=== PATIENT | female | born 1990 | race Caucasian/White ===

== ENCOUNTER → 2017-05-31 14:22 | Outpatient (CLI) | payer OTHER, SELFPAY ==
[2017-05-31 16:04] LABS: Basophils # 0.1 K/mm3 (0-0.2); Eosinophils # 0.1 K/mm3 (0.0-0.4); Eosinophils % 1.7 % (0.1-12.0); Hematocrit 41.5 % (37.0-47.0); Hemoglobin 13.4 g/dL (12.2-16.2); Lymphocytes # 2.4 K/mm3 (0.7-4.5); Lymphocytes % 36.9 K/mm3 (10-50); Mean Corpuscular HGB Conc 32.4 g/dL (31.8-35.4); Mean Corpuscular Hemoglobin 30.9 pg (27.0-31.2); Mean Corpuscular Volume 95.4 fl (81-99); Mean Platelet Volume 7.5 fl (7.4-10.4); Monocytes # 0.4 K/mm3 (0.1-1.0); Monocytes % 5.7 % (1.7-9.3); Neutrophils # 3.6 K/mm3 (1.8-7.8); Neutrophils % 54.8 % (37.0-80.0); Platelet Count 272 K/mm3 (142-424); Red Blood Count 4.35 M/mm3 (4.20-5.40); Red Cell Distribution Width 12.8 % (11.5-17.5); White Blood Count 6.6 K/mm3 (4.8-10.8)
[2017-05-31 17:08] LABS: HCG Qualitative, Serum Negative (Negative)
[2017-05-31 17:45] LABS: Alanine Aminotransferase 23 U/L (12-78); Albumin Level 3.6 gm/dL (3.4-5.0); Albumin/Globulin Ratio 1.1 (1.1-1.8); Alkaline Phosphatase 67 U/L (46-116); Anion Gap 11.8 mEq/L (5-15); Aspartate Amino Transferase 14 U/L (15-37); Bilirubin,Total 0.5 mg/dL (0.2-1.0); Blood Urea Nitrogen 13 mg/dL (7-18); Calcium 8.5 mg/dL (8.5-10.1); Carbon Dioxide 28 mmol/L (21.0-32.0); Chloride 101 mmol/L (98-107); Creatinine,Serum 0.69 mg/dL (0.55-1.02); Estimated Glomerular Filt Rate 101 ml/min (>60); GFR (African American) 123 ML/MIN (>60); Globulin 3.3 gm/dl (1.3-3.2); Glucose 62 mg/dL (74-106); Potassium 3.8 mmoL/L (3.5-5.1); Sodium 137 mmol/L (136-145); Total Protein,Serum 6.9 gm/dL (6.4-8.2)
== END ==
PROVIDERS: PCP Internal Medicine Adolescent Medicine; Visit Provider Surgery
DX: K80.10 Calculus of gallbladder with chronic cholecystitis without obstruction
CPT/HCPCS: 80053; 84703; 85025

== ENCOUNTER 2017-06-03 08:46 | Day surgery (SDC) | payer OTHER, SELFPAY ==
[2017-06-02 13:22] VITALS: BMI 29.2
[2017-06-03] VITALS (13 sets, daily range): BP systolic 121–146; BP diastolic 79–95; PULSE 71–100; RESP 16–20; TEMP 36.2–43; O2SAT 94–100
--- NOTE | 2017-06-03 10:11 | P.PN_ITS ---
[facility] Anesthesia Checklist - Patient Identification Patient Identification: Arm Band - Structural Data Admitted From: Home Planned Operative Procedure/s: Lap frances Consent for Planned Operative Procedure(s) Verified: Yes Verified Documents: Surgical Consent, History and Physical - NPO Status Verified Time NPO: 00:00 - Additional verifications Anesthesia Reactions: No - Airway Assessment C-Spine Mobility Assessed: Yes (MP2) TMJ Mobility Assessed: Yes Dentition: Good Dentition - Neurological Assessment Level of Consciousness: Awake, Alert - Anesthesia Plan Anesthesia Risk discussed: Yes Anesthesia Plan: Verified ASA Class: I Anesthesia Type: General [facility] Anesthesia HX I have reviewed the patient's past medical history: Yes Medical History: Denies:: Cancer, Diabetes Mellitus Type 1, Diabetes Mellitus Type 2, MRSA, Seizures Other Medical History: Denies: Blood Transfusion Reaction Laterality Cases: Right: Arthroscopy Knee, Bilateral: Tonsillectomy Amputation: No Fractures: No *Family Hx:: Cancer, Diabetes, Hyperlipidemia, Hypertension
--- NOTE | 2017-06-03 11:29 | P.OP_ITS ---
Date of procedure: 06/03/17 Pre-op Diagnosis:: Chronic calculus cholecystitis Post-op diagnosis:: same Procedure performed:: Laparoscopic cholecystectomy Surgeon:: Easton Suarez MD Baby Attendant(s):: Yeimy Plascencia HANDWRITING EXPERT:: Addison Chakraborty Anesthesia: GETA Estimated blood loss (mL): 10 Operative findings:: Mild thickening of tissue in and around the infundibulum Operative note:: After informed consent was obtained, the patient was taken to the operating room and placed in the supine position. General anesthesia was induced and the abdomen was prepped and draped in a sterile fashion. After infiltration with local anesthetic an infraumbilical incision was made. A Veress needle was placed in position. The abdomen was insufflated. A 5 mm optical trocar was placed in position. Under direct visualization, a 12 mm trocar was placed in the subxiphoid position and 2 additional 5 mm trocars were placed in the right upper quadrant. The gallbladder was elevated up and over the liver margin. The tissue around the cystic duct was carefully dissected. 3 clips were placed proximally and the duct was transected with harmonic ana. Harmonic ana were then utilized to dissect the gallbladder away from the liver margin with careful attention to the control of the cystic artery. The gallbladder was placed in a retrieval bag and removed through the subxiphoid trocar site. The right upper quadrant was thoroughly irrigated. No active bleeding or bile leak was noted. Fascia at the subxiphoid trocar site was reapproximated utilizing the NeoClose device. T he remaining trocars were removed. All wounds were irrigated and skin was closed with 4-0 Monocryl in a subcuticular fashion. Steri-Strips were applied. The patient's anesthetic agents were reversed and extubation was completed prior to transfer to recovery in stable condition. Pathology: other (Gallbladder and contents) Condition: stable Disposition: PACU Specimens:: Gallbladder and contents Complications:: No immediate
--- NOTE | 2017-06-03 11:47 | P.PN_ITS ---
[facility] Anesthesia Record Part II Discharge Time: 12:15 Destination: [facility] PACU nurse assessment reviewed?: Yes Patient Condition:: Good Anesthesia Complications:: None
--- NOTE | 2017-06-03 11:47 | P.PN_ITS ---
[facility] Anesthesia Record Part I Intake, IV Amount: 1,000 Estimated blood loss (mL): 10 Urine output (mL): 0 Blood Pressure: 146/95 SaO2: 98 Pulse Rate: 100 Respiratory Rate: 16 Temperature: 97.2 F Patient is:: Drowsy, Stable Stable to PACU at:: 11:45
--- NOTE | 2017-06-03 11:47 | HMH.ANESII ---
[facility] Anesthesia Record Part II Discharge Time: 12:15 Destination: [facility] PACU nurse assessment reviewed?: Yes Patient Condition:: Good Anesthesia Complications:: None
--- NOTE | 2017-06-03 13:25 | PC.NURSE ---
06/03/17 1156 Pt med with Zofran 4mg IV for c/o nausea. no vomiting. Pt also med with Morphine 2mg IV for c/o abd pain rated 6/10. 06/03/17 1206 Pt med with Morphine 2mg IV for c/o abd pain rated 6/10. 06/03/17 1211 Pt med with Morphine 2mg IV for c/o abd pain rated 4/10.
--- NOTE | 2017-06-03 13:39 | SUR.PHASEII ---
at discharge, mid abdominal dressing presented with small amount of serous drainage. teaching given to pt to watch for increasing drainage
== END 2017-06-03 13:40 | disposition home or self-care (01) ==
PROVIDERS: Family Provider Internal Medicine Adolescent Medicine; PCP Internal Medicine Adolescent Medicine; Visit Provider Surgery
PROC: 0FT44ZZ Resection of Gallbladder, Percutaneous Endoscopic Approach (ICD-10-PCS; CPT 47562; principal; 2017-06-03 08:45)
DX: K80.10 Calculus of gallbladder with chronic cholecystitis without obstruction (principal)
CPT/HCPCS: 47562; 96374; J0131; J2405; J2710

== ENCOUNTER → 2018-06-08 13:06 | Outpatient (CLI) | payer OTHER, SELFPAY ==
[2018-06-08 14:57] LABS: HCG,Quantitative 2232 mIU/mL
== END ==
PROVIDERS: Visit Provider Nurse Practitioner Obstetrics & Gynecology
DX: Z34.90 Encounter for supervision of normal pregnancy, unspecified, unspecified trimester (principal)
CPT/HCPCS: 36415; 84702

== ENCOUNTER → 2018-06-10 12:14 | Outpatient (CLI) | payer OTHER, SELFPAY ==
[2018-06-10 16:29] LABS: HCG,Quantitative 1804 mIU/mL
== END ==
PROVIDERS: Visit Provider Nurse Practitioner Obstetrics & Gynecology
DX: Z34.90 Encounter for supervision of normal pregnancy, unspecified, unspecified trimester (principal); Z3A.01 Less than 8 weeks gestation of pregnancy
CPT/HCPCS: 36415; 84702

== ENCOUNTER → 2018-06-13 13:19 | Outpatient (CLI) | payer OTHER, SELFPAY ==
[2018-06-13 14:33] LABS: HCG,Quantitative 710 mIU/mL
== END ==
PROVIDERS: Visit Provider Nurse Practitioner Obstetrics & Gynecology
DX: Z34.90 Encounter for supervision of normal pregnancy, unspecified, unspecified trimester (principal); Z3A.01 Less than 8 weeks gestation of pregnancy
CPT/HCPCS: 36415; 84702; 86850

== ENCOUNTER → 2018-06-21 14:47 | Outpatient (CLI) | payer OTHER, SELFPAY ==
[2018-06-21 16:56] LABS: HCG,Quantitative 40 mIU/mL
== END ==
PROVIDERS: Visit Provider Nurse Practitioner Obstetrics & Gynecology
DX: Z34.90 Encounter for supervision of normal pregnancy, unspecified, unspecified trimester (principal); Z3A.01 Less than 8 weeks gestation of pregnancy
CPT/HCPCS: 36415; 84702

== ENCOUNTER → 2018-06-28 09:51 | Outpatient (CLI) | payer OTHER, SELFPAY ==
[2018-06-28 11:34] LABS: HCG,Quantitative 17 mIU/mL
== END ==
PROVIDERS: Visit Provider Nurse Practitioner Obstetrics & Gynecology
DX: Z34.90 Encounter for supervision of normal pregnancy, unspecified, unspecified trimester (principal)
CPT/HCPCS: 36415; 84702

== ENCOUNTER → 2018-09-12 12:12 | Outpatient (CLI) | payer OTHER, SELFPAY ==
[2018-09-12 16:20] LABS: HCG,Quantitative 675 mIU/mL
== END ==
PROVIDERS: Visit Provider Nurse Practitioner Obstetrics & Gynecology
DX: Z32.00 Encounter for pregnancy test, result unknown (principal)
CPT/HCPCS: 36415; 84702

== ENCOUNTER → 2018-09-22 14:15 | Outpatient (CLI) | payer OTHER, SELFPAY ==
[2018-09-22 17:28] LABS: HCG,Quantitative 22829 mIU/mL
== END ==
PROVIDERS: Visit Provider Nurse Practitioner Obstetrics & Gynecology
DX: Z34.90 Encounter for supervision of normal pregnancy, unspecified, unspecified trimester (principal)
CPT/HCPCS: 36415; 84702

== ENCOUNTER → 2018-09-25 14:49 | Outpatient (CLI) | payer OTHER, SELFPAY ==
[2018-09-27 14:40] LABS: Progesterone 13.4 ng/mL (.)
== END ==
PROVIDERS: Visit Provider Nurse Practitioner Obstetrics & Gynecology
DX: Z34.90 Encounter for supervision of normal pregnancy, unspecified, unspecified trimester (principal)
CPT/HCPCS: 36415; 84144

== ENCOUNTER → 2018-10-19 15:42 | Outpatient (CLI) | payer OTHER, SELFPAY ==
[2018-10-19 16:40] LABS: Basophils % 0.5 % (0.1-2.0); Eosinophils % 0.6 % (0.1-12.0); Hematocrit 35.8 % (37.0-47.0); Hemoglobin 11.3 g/dL (12.2-16.2); Lymphocytes # 1.6 K/mm3 (0.7-4.5); Lymphocytes % 23.8 % (10-50); Mean Corpuscular HGB Conc 31.6 g/dL (31.8-35.4); Mean Corpuscular Hemoglobin 28.9 pg (27.0-31.2); Mean Corpuscular Volume 91.6 fl (81-99); Mean Platelet Volume 7.1 fl (7.4-10.4); Monocytes # 0.3 K/mm3 (0.1-1.0); Monocytes % 3.7 % (1.7-9.3); Neutrophils # 4.9 K/mm3 (1.8-7.8); Neutrophils % 71.4 % (37.0-80.0); Platelet Count 231 K/mm3 (142-424); Red Cell Distribution Width 13.8 % (11.5-17.5); White Blood Count 6.9 K/mm3 (4.8-10.8)
[2018-10-21 08:19] LABS: HIV Screen 4th Generation wRfx Non Reactive (Non Reactive)
[2018-10-21 20:48] LABS: Hepatitis B Surface Antigen Negative (Negative); Hepatitis C Antibody 0.1 s/co ratio (0.0-0.9); Rapid Plasma Reagin Ab Titer Non Reactive (NonRea<1:1); Rubella Antibodies, IgG 3.73 index (Immune >0.99)
== END ==
PROVIDERS: Visit Provider Nurse Practitioner Obstetrics & Gynecology
DX: Z34.90 Encounter for supervision of normal pregnancy, unspecified, unspecified trimester (principal)
CPT/HCPCS: 36415; 85025; 86592; 86703; 86762; 86850; 87340; 87380; G0432

== ENCOUNTER → 2019-01-02 15:20 | Outpatient (CLI) | payer OTHER, SELFPAY ==
--- NOTE | 2019-01-02 15:21 | US_ITS ---
PROCEDURE: US OB /MATERNAL DETAIL CLINICAL INDICATION: US OB Complete COMPARISON: No exams were available for comparison FINDINGS: Single viable intrauterine gestation. Breech position. Placenta: Anteriorplacenta grade 1. There is average amount fluid. The cervix appears satisfactory. Closed and measuring 3 centimetres in length. Complete survey performed and was unremarkable on the submitted images as in PACS. No discrete anomalies identified on survey imaging by technologist. Active fetus. Three-vessel cord with satisfactory umbilical cord insertion. 4- chamber heart noted. Survey of brain & ventricles Unremarkable. Face and neck survey unremarkable. Diaphragm and chest views unremarkable. Abdomen: Both kidneys noted and unremarkable. Stomach noted and satisfactory. Spine: Survey of the spine satisfactory with no anomalies identified nor imaged. Both arms and legs noted. Amniotic Fluid: Adequate. Maternal adnexa: No significant findings. Measurements: Average ultrasound age 19 weeks 6 days. Gestational Age 19.86 week Estimated due date by ultrasound age 0105/23/2019. Estimated weight 314 ggrams. BPD = 19 weeks 6 days OFD = 20 weeks 2 days HC = 19 weeks 3 days AC = 20 weeks 2 days FL = 19 weeks 4 days Growth Percentile= 40 Percent% Heart Rate = 149 bpm Cerebellum = 20 weeks 0 days Humerus = 20 weeks 3 days HC/AC is 1.11 CI is 77 percent FL/BPD is 67 percent FL/AC is 20 percent IMPRESSION: There is a single live fetus which is in breech presentation with an average ultrasound age of 19 weeks 6 days. All parameters correlate with no obvious anomalies. heart and body motion noted. Please see above for detail. Dictated by: Chaz Riley MD 01/03/2019 04:58 Signed by: <Electronically signed by Chaz Riley MD in OV> 01/03/2019 04:58
== END ==
PROVIDERS: PCP Internal Medicine Adolescent Medicine; Visit Provider Nurse Practitioner Obstetrics & Gynecology
DX: Z36.0 Encounter for antenatal screening for chromosomal anomalies (principal)
CPT/HCPCS: 76811

== ENCOUNTER 2019-01-29 08:32 | Outpatient (CLI) | payer OTHER, SELFPAY ==
[2019-01-29] VITALS (8 sets, daily range): BP systolic 145–169; BP diastolic 82–103; PULSE 75–82; RESP 18; TEMP 36.8; O2SAT 99; BMI 31.5
[2019-01-29 10:14] LABS: Microscopic, Urine URINE MICROSCOPIC (MICROSCOPIC)
[2019-01-29 10:23] LABS: Appearance,Urine CLEAR (Clear); Bilirubin,Urine Negative (Negative); Blood, Urine Negative (Negative); Color,Urine YELLOW (Yellow); Glucose,Urine (UA) Negative (Negative); Ketones,Urine Negative (Negative); Leukocyte Esterase,Urine Negative (Negative); Nitrate,Urine Negative (Negative); Protein,Urine 1+ (Negative); Urobilinogen,Urine 0.2 EU/dl (0.2)
[2019-01-29 10:31] LABS: Amphetamine/Metha Screen,Urine Negative ng/mL (<1000); Barbiturates Screen,Urine Negative ng/mL (<200); Benzodiazepines Screen,Urine Negative ng/mL (<200); Cannabinoid Screen,Urine Negative ng/mL (<50); Cocaine Screen,Urine Negative ng/mL (<300); Methadone Screen,Urine Negative ng/mL (<300); Opiate Screen,Urine Negative ng/mL (<300); Phencyclidine Screen,Urine Negative ng/mL (<25)
[2019-01-29 10:48] LABS: Activated Partial Thrombo Time 27.1 seconds (23.6-34.0); Alanine Aminotransferase 19 U/L (12-78); Anion Gap 13.9 mEq/L (5-15); Aspartate Amino Transferase 20 U/L (15-37); Blood Urea Nitrogen 8 mg/dL (7-18); Calcium 8.8 mg/dL (8.5-10.1); Carbon Dioxide 24 mmol/L (21.0-32.0); Chloride 104 mmol/L (98-107); Creatinine Clearance Estimated 136 mL/min (50-200); Creatinine,Serum 0.78 mg/dL (0.55-1.02); Estimated Glomerular Filt Rate 87 ml/min (>60); Fibrinogen 357 mg/dL (204-500); GFR (African American) 106 ML/MIN (>60); Glucose 69 mg/dL (74-106); INR 0.91 (0.9-1.1); Potassium 3.9 mmoL/L (3.5-5.1); Prothrombin Time 9.5 seconds (9.4-11.8); Sodium 138 mmol/L (136-145)
[2019-01-29 10:51] LABS: Bacteria,Urine Trace /lpf; WBC,Urine Occasional #/hpf (0-3)
[2019-01-29 11:02] LABS: Basophils % 0.3 % (0.1-2.0); Eosinophils # 0.1 K/mm3 (0.0-0.4); Eosinophils % 0.6 % (0.1-12.0); Hematocrit 39.4 % (37.0-47.0); Lymphocytes # 1.9 K/mm3 (0.7-4.5); Lymphocytes % 23.1 % (10-50); Mean Corpuscular Hemoglobin 31.9 pg (27.0-31.2); Mean Corpuscular Volume 96.8 fl (81-99); Mean Platelet Volume 7.7 fl (7.4-10.4); Monocytes # 0.4 K/mm3 (0.1-1.0); Monocytes % 4.7 % (1.7-9.3); Neutrophils # 5.9 K/mm3 (1.8-7.8); Neutrophils % 71.3 % (37.0-80.0); Platelet Count 216 K/mm3 (142-424); Red Blood Count 4.06 M/mm3 (4.20-5.40); Red Cell Distribution Width 13.8 % (11.5-17.5); White Blood Count 8.2 K/mm3 (4.8-10.8)
[2019-01-29 11:42] LABS: D-Dimer 259 ng/mL (0-400)
[2019-01-29 13:47] LABS: Magnesium 1.7 mg/dL (1.4-2.2)
== END 2019-01-29 14:40 | disposition critical access hospital (66) ==
LOC: OBOUT 08:33 → OB 08:34
PROVIDERS: PCP Internal Medicine Adolescent Medicine; Visit Provider Nurse Practitioner Obstetrics & Gynecology
DX: O13.2 Gestational [pregnancy-induced] hypertension without significant proteinuria, second trimester (principal); Z3A.23 23 weeks gestation of pregnancy; R51 Headache
CPT/HCPCS: 36415; 59025; 80048; 80305; 81001; 83735; 84450; 84460; 84550; 85025; 85378; 85384; 85610; 85730; 96360

== ENCOUNTER → 2020-01-11 15:33 | Outpatient (CLI) | payer OTHER, SELFPAY ==
[2020-01-13 16:41] LABS: Covid-19 Nasal PCR Sendout UK Detected
--- NOTE | 2020-01-13 16:54 | PC.NURSE ---
Notified Dr Morales of positive covid results
== END ==
PROVIDERS: PCP Internal Medicine Adolescent Medicine; Referring Provider Emergency Medicine; Visit Provider Internal Medicine Adolescent Medicine
DX: Z20.828 Contact with and (suspected) exposure to other viral communicable diseases (principal); U07.1 COVID-19
CPT/HCPCS: U0003

== ENCOUNTER 2021-08-23 19:42 | Emergency (ER) | payer OTHER, SELFPAY ==
--- NOTE | 2021-08-23 19:54 | XR_ITS ---
PROCEDURE INFORMATION: Exam: XR Chest Exam date and time: 08/23/2021 7:58 PM Age: 31 years old Clinical indication: Cough TECHNIQUE: Imaging protocol: XR of the chest. Views: 2 views. Total images: 2 COMPARISON: ABDPELW CT ABD PELVIS W/ CONTRAST 08/15/2015 2:45 PM FINDINGS: Lungs: Normal pulmonary expansion. Pulmonary vasculature grossly normal. No gross pulmonary infiltrates or edema pattern. Pleural spaces: No pleural effusion. No pneumothorax. Heart/Mediastinum: Heart size normal. No tracheal/mediastinal shift. Bones/joints: No acute osseous abnormalities are identified. Intraperitoneal space: Right upper quadrant surgical clips suggest prior cholecystectomy. IMPRESSION: No acute thoracic process.
[2021-08-23 20:18] VITALS: BP 157/88; PULSE 68; RESP 19; TEMP 36.9; O2SAT 98; BMI 37.8
--- NOTE | 2021-08-23 20:24 | HMH.EDUTC ---
[facility] Clinical Impression: Acute bronchitis Qualifiers: Bronchitis organism: unspecified organism Qualified Code(s): J20.9 - Acute bronchitis, unspecified Disposition: Home, Self-Care Condition on Discharge: Good Instructions: Acute Bronchitis, DI for Acute Bronchitis Additional Instructions: Drink plenty of fluids. Take tylenol or ibuprofen for pain or fever. Take the medications as directed. Follow up with your regular doctor. GO TO THE ER FOR ANY WORSENING SYMPTOMS Prescriptions: Albuterol Sulfate [Albuterol Sulfate Hfa] 2 puffs IH Q6HP PRN 30 Days #1 each PRN Reason: Shortness Of Breath Transmission Status: Received by [facility] Cefdinir [Omnicef 300mg Capsule] 300 mg PO BID #20 cap Transmission Status: [facility] Referrals: Addison Garcia MD [Primary Care Provider] - Time of Disposition: 20:55 Medical Decision Making - Medical Records Medical records reviewed: No: I reviewed the patient's medical records. - Taurus Inquiry Pt receiving controlled substance: No Vital Signs: 08/23/21 20:18 08/23/21 21:20 Temperature 98.4 F 98.4 F Temperature Source Oral Pulse Rate 68 Pulse Rate [Left] 68 Respiratory Rate 19 19 Blood Pressure 157/88 H Blood Pressure [Right Arm] 157/88 H Blood Pressure Mean [Right Arm] 111 02 Sat by Pulse Oximetry 98 - Lab Data Lab results reviewed: Yes: I reviewed the patient's lab results. Lab Results 08/23/21 20:11: Group A Strep Rapid Negative 08/23/21 20:29: Influenza Type A Ag Negative, Influenza Type B Ag Negative [facility] [place] - General Stated complaint: cough, headache Time Seen by Provider: 08/23/21 20:25 - History of Present Illness Provider Complaint: She c/o chest congestion, chest tightness, body ache and malaise since yesterday. - Related Data Previous Rx's Medication Instructions Recorded Albuterol Sulfate [Albuterol 2 puffs IH Q6HP PRN 30 Days #1 each 08/23/21 Sulfate Hfa] Cefdinir [Omnicef 300mg Capsule] 300 mg PO BID #20 cap 08/23/21 Allergies Allergy/AdvReac Type Severity Reaction Status Date / Time No Known Allergies Allergy Verified 12/04/19 08:26 [facility] History - Hepatitis A Screen Attestation statement:: This patient has been screened for Hepatitis A risk factors. I have reviewed the patient's past medical history: Yes Medical History: Denies:: Cancer, Diabetes Mellitus Type 1, Diabetes Mellitus Type 2, MRSA, Seizures Other Medical History: Denies: Blood Transfusion Reaction Laterality Cases: Right: Arthroscopy Knee, Bilateral: Tonsillectomy, Other Other Surgeries: Yes: Cholecystectomy. No: Amputation: No Fractures: No - Social History Smoking Status: Never smoker Alcohol Intake: never Alcohol Intake Frequency:: holidays/special occasions only Substance Use Type: denies use Occupational Status: employed Housing: house Household Members: significant other Family Hx:: No significant family history ROS Obtained: Yes All systems reviewed & no additional complaints - Constitutional Constitutional: Reports chills, Denies fever(s), Reports poor appetite, Reports malaise - Eyes Eyes: Denies eye discharge - ENT Ears, Nose, Mouth, and Throat: Reports sore throat - Cardiovascular Cardiovascular: Denies chest pain - Respiratory Respiratory: Reports chest congestion, Reports cough, Denies dyspnea, Denies stridor, Reports wheezing Physical Exam - General General appearance: alert, in no apparent distress - Head Head exam: atraumatic, normocephalic, normal inspection - Eye Eye exam: Present: normal appearance, PERRL, EOMI - ENT ENT exam: Present: normal exam, normal oropharynx, mucous membranes moist, TM's normal bilaterally, normal external ear exam - Neck Neck exam: Present: normal inspection, full ROM, trachea midline. Absent: meningismus, lymphadenopathy - Chest Chest inspection: Present: nor
[2021-08-23 20:30] LABS: UTC Influenza A Antigen Negative (Negative)
[2021-08-23 20:31] LABS: UTC Influenza B Antigen Negative (Negative)
[2021-08-23 20:42] LABS: Strep Scrn Group A (Rapid) Negative (Negative)
[2021-08-23 21:20] VITALS: BP 157/88; PULSE 68; RESP 19; TEMP 36.9
== END 2021-08-23 21:22 | disposition home or self-care (01) ==
PROVIDERS: Emergency Provider Nurse Practitioner Family; PCP Internal Medicine Adolescent Medicine
DX: J02.9 Acute pharyngitis, unspecified (principal); M79.10 Myalgia, unspecified site; R53.82 Chronic fatigue, unspecified
CPT/HCPCS: 71046; 87430; 87804; 99213; G0463

== ENCOUNTER 2022-11-08 08:59 | Outpatient (CLI) | payer OTHER, SELFPAY ==
[2022-11-08 11:50] VITALS: BMI 35.4
== END 2022-11-08 12:01 | disposition home or self-care (01) ==
PROVIDERS: PCP Internal Medicine Adolescent Medicine; Visit Provider Nurse Practitioner Family
DX: K04.7 Periapical abscess without sinus (principal)

== ENCOUNTER 2023-04-11 15:17 | Emergency (ER) | payer OTHER, SELFPAY ==
[2023-04-11 15:18] VITALS: PULSE 100; RESP 20; TEMP 36.7; O2SAT 98; BMI 39.4
--- NOTE | 2023-04-11 15:19 | XR_ITS ---
FINAL REPORT CLINICAL HISTORY: left ankle deformity COMPARISON: None FINDINGS: Three views of the left ankle show an oblique fracture at the base of the medial malleolus. There is a mildly displaced posterior malleolus fracture. Old avulsion fractures are noted at the tip of the medial and lateral malleolus. There is no widening of the ankle mortise. IMPRESSION: Medial and posterior malleolus fractures as well as distal fibular fracture. Reviewed, Interpreted and Dictated by Blake Paiz MD Transcribed by Malinda Strauss Authenticated and [facility]
--- NOTE | 2023-04-11 15:19 | XR_ITS ---
FINAL REPORT CLINICAL HISTORY: left ankle and distal tib fib pain COMPARISON: None FINDINGS: Two views of the left tibia/fibula were obtained. There is a mildly comminuted fracture of the distal 1/3 of the fibular shaft, mildly displaced. The ankle joint is not well seen. The joint spaces are otherwise intact. There is no soft tissue abnormality. IMPRESSION: Fibula fracture as above. Reviewed, Interpreted and Dictated by Blake Paiz MD Transcribed by Malinda Strauss Authenticated and [facility]
--- NOTE | 2023-04-11 15:19 | XR_ITS ---
FINAL REPORT CLINICAL HISTORY: left ankle deformity COMPARISON: None FINDINGS: Three views of the left foot were obtained. Fractures are again noted at the ankle. There is no fracture seen within the foot. The joints are intact. IMPRESSION: No obvious acute bony abnormality of the left foot. Reviewed, Interpreted and Dictated by Blake Paiz MD Transcribed by Malinda Strauss Authenticated and [facility]
--- NOTE | 2023-04-11 15:25 | HMH.EDGENADL ---
Discharge Plan Disposition Patient Disposition: Home, Self-Care Prescriptions Prescriptions: New ondansetron 4 mg tablet,disintegrating 4 mg PO Q6H PRN (Reason: nausea and vomiting) Qty: 10 0RF oxycodone 5 mg tablet 5 mg PO Q6H PRN (Reason: pain) Qty: 10 0RF No Action Nexplanon 68 mg implant subdermal escitalopram oxalate 10 mg tablet 10 mg PO esomeprazole magnesium [Nexium] 20 mg capsule,delayed release(DR/EC) 20 mg PO DAILY Referrals Follow up/Referrals: Addison Garcia MD [Primary Care Provider] - See instructions Clinical Impressions Clinical Impression: Bimalleolar ankle fracture Qualifiers: Encounter type: initial encounter Fracture type: closed Laterality: left Qualified Code(s): S82.842A - Displaced bimalleolar fracture of left lower leg, initial encounter for closed fracture Closed left fibular fracture Qualifiers: Encounter type: initial encounter Fibula location: shaft Fracture morphology: comminuted Fracture alignment: displaced Qualified Code(s): S82.452A - Displaced comminuted fracture of shaft of left fibula, initial encounter for closed fracture Discharge ED Provider: Nicola Kaur General Adult HPI General Chief complaint: Extremity Injury, Lower Stated complaint: fall, left ankle pain Time Seen by Provider: 04/11/23 15:19 Mode of Arrival: Ambulatory Source of Information: Patient Limitations: No Limitations Description of Symptoms (Recalled from ER Triage Doc. by RN): pt slipped/fell on wet floor while at work and felt and heard her left ankle pop with pain and swelling immediately History of Present Illness HPI narrative: 33-year-old female no relevant medical history presenting with left ankle pain after slipping on the floor. Working in the emergency department. Patient slipped on wet floor, heard her left ankle pop. Had immediate pain. Pain is anterior, at the ankle joint. Active and passive range of motion limited secondary to pain. Patient is neurovascular intact. Related Data Home Medications Medication Instructions Recorded Confirmed etonogestrel 68 mg subdermal subdermal 04/22/22 06/30/22 implant (Nexplanon) escitalopram oxalate 10 mg tablet 10 mg PO 06/30/22 06/30/22 esomeprazole magnesium 20 mg 20 mg PO DAILY 06/30/22 06/30/22 capsule,delayed release (Nexium) Previous Rx's Medication Instructions Recorded ondansetron 4 mg disintegrating 4 mg PO Q6H PRN nausea and 04/11/23 tablet vomiting #10 tabs oxycodone 5 mg tablet 5 mg PO Q6H PRN pain #10 tabs 04/11/23 Allergies Allergy/AdvReac Type Severity Reaction Status Date / Time No Known Allergies Allergy Verified 06/30/22 08:45 PFSH PFS Disclaimer: The information contained in this section may have been updated after the patient was seen, as this information can be updated by other users. Surgical History Hx of section Hx of cholecystectomy Family History Other Cancer Diabetes Social History Smoking Status: Never smoker alcohol intake: never substance use type: denies use current occupational status: employed Travel in the last 8 weeks: None household members: significant other housing: house current occupation: rn [employer] Obtained: Yes All systems reviewed & no additional complaints except as documented Physical Exam General General appearance: alert and in distress (Due to obvious pain) Head Head exam: atraumatic and normocephalic Eye Eye exam: Present normal appearance, PERRL and EOMI ENT ENT exam: Present mucous membranes moist Neck Neck exam: Present normal inspection, full ROM and trachea midline Respiratory Respiratory exam: Absent respiratory distress, wheezes, stridor, accessory muscle use or prolonged expiratory phase Cardiovascular Cardiovascular exam: Presen
--- NOTE | 2023-04-11 15:57 | PC.NURSE ---
ORTHO LIVESTOCK SALES REPRESENTATIVE PAGED AT THIS TIME
--- NOTE | 2023-04-11 16:24 | PC.NURSE ---
called ortho to verify appt for 2pm tomorrow
[2023-04-11 18:24] VITALS: BP 128/76; PULSE 78; RESP 16; TEMP 36.7; O2SAT 97
== END 2023-04-11 18:25 | disposition home or self-care (01) ==
PROVIDERS: Emergency Provider Emergency Medicine; PCP Internal Medicine Adolescent Medicine
DX: S82.842A Displaced bimalleolar fracture of left lower leg, initial encounter for closed fracture (principal); S82.452A Displaced comminuted fracture of shaft of left fibula, initial encounter for closed fracture; W01.10XA Fall on same level from slipping, tripping and stumbling with subsequent striking against unspecified object, initial encounter
CPT/HCPCS: 29515; 73590; 73610; 73630; 96374; 96375; 96376; 99285

== ENCOUNTER → 2023-04-12 15:34 | Outpatient (CLI) | payer OTHER, SELFPAY ==
--- NOTE | 2023-04-12 15:49 | ECG_ITS ---
APPROVED REPORT Exam: Resting ECG HR:77 bpm ECG Measurements Heart Rate 77 AXES TN 166 P 36 QRSd 82 QRS 71 QT 364 T 12 QTc 396 Conclusion SINUS RHYTHM LOW QRS VOLTAGE IN PRECORDIAL LEADS [QRS DEFLECTION < 1.0 mV IN CHEST LEADS] NONSPECIFIC T-WAVE ABNORMALITY BORDERLINE ECG UNCONFIRMED REPORT Electronically signed by : Addison Garcia MD 04/13/2023 18:26:06
--- NOTE | 2023-04-12 15:52 | XR_ITS ---
FINAL REPORT CLINICAL HISTORY: Pre Op, soa FINDINGS: 2 views of the chest were obtained . The heart is normal in size. The mediastinum is within normal limits. The lungs are clear. There is no pneumothorax. Osseous structures are unremarkable. IMPRESSION: No acute cardiopulmonary process. Reviewed, Interpreted and Dictated by Blake Paiz MD Transcribed by Anne Huang Authenticated and [facility]
[2023-04-12 16:53] LABS: Chloride 103 mmol/L (98-107); Potassium 3.7 mmoL/L (3.5-5.1); Sodium 139 mmol/L (136-145)
[2023-04-12 16:55] LABS: Alanine Aminotransferase 26 U/L (12-78); Alkaline Phosphatase 87 U/L (38-126); Aspartate Amino Transferase 26 U/L (14-36); Bilirubin,Total 0.7 mg/dl (0.2-1.3); Blood Urea Nitrogen 12 mg/dl (7-17); Estimated Glomerular Filt Rate 72 ml/min (>60); GFR (African American) 87 ML/MIN (>60)
[2023-04-12 16:56] LABS: Albumin Level 4.2 g/dl (3.5-5.0); Albumin/Globulin Ratio 1.6 (1.1-1.8); Anion Gap 11.7 mEq/L (5-15); Calcium 8.6 mg/dl (8.4-10.2); Carbon Dioxide 28 mmol/L (22.0-30.0); Globulin 2.7 g/dL (1.3-3.2); Glucose 119 mg/dl (74-100); Total Protein,Serum 6.9 g/dl (6.3-8.2)
[2023-04-12 17:13] LABS: Basophils % 0.3 % (0.1-2.0); Eosinophils # 0.1 K/mm3 (0.0-0.4); Eosinophils % 0.7 % (0.1-12.0); Hematocrit 39.3 % (37.0-47.0); Hemoglobin 13.2 g/dL (12.2-16.2); Lymphocytes # 1.9 K/mm3 (0.7-4.5); Lymphocytes % 22.5 % (10-50); Mean Corpuscular HGB Conc 33.5 g/dL (31.8-35.4); Mean Corpuscular Hemoglobin 31.4 pg (27.0-31.2); Mean Corpuscular Volume 93.8 fl (81-99); Mean Platelet Volume 7.9 fl (7.4-10.4); Monocytes # 0.4 K/mm3 (0.1-1.0); Monocytes % 4.6 % (1.7-9.3); Neutrophils % 71.8 % (37.0-80.0); Platelet Count 250 K/mm3 (142-424); Red Blood Count 4.19 M/mm3 (4.20-5.40); Red Cell Distribution Width 13.9 % (11.5-17.5); White Blood Count 8.3 K/mm3 (4.8-10.8)
== END ==
PROVIDERS: Visit Provider Orthopaedic Surgery
DX: Z01.818 Encounter for other preprocedural examination (principal); S82.843A Displaced bimalleolar fracture of unspecified lower leg, initial encounter for closed fracture
CPT/HCPCS: 36415; 71046; 80053; 84703; 85025; 93005

== ENCOUNTER 2023-04-18 10:47 | Day surgery (SDC) | payer OTHER, SELFPAY ==
[2023-04-14 16:54] VITALS: BMI 39.4
[2023-04-14 17:25] LABS: HCG Qualitative, Serum Negative (Negative)
--- NOTE | 2023-04-15 11:17 | PC.NURSE ---
Accessed pt chart to complete ortho form
[2023-04-18] VITALS (10 sets, daily range): BP systolic 106–132; BP diastolic 60–84; PULSE 85–104; RESP 16–20; TEMP 36.1–43; O2SAT 92–99
--- NOTE | 2023-04-18 13:16 | P.PNANES_ITS ---
[facility] Disclaimer: The information contained in this section may have been updated after the patient was seen, as this information can be updated by other users. Medical History (Updated 04/18/23 @ 11:38 by Paul Henriquez RN) Depression History of fracture of right ankle Preeclampsia Surgical History History of arthroscopic knee surgery Hx of section Hx of cholecystectomy Family History Other Cancer Diabetes Social History Smoking Status: Never smoker alcohol intake: never substance use type: denies use current occupational status: employed Travel in the last 8 weeks: None household members: significant other housing: house current occupation: rn [employer] Anesthesia Checklist Patient Identification Patient Identification: Arm Band Structural Data Admitted From: Home Planned Operative Procedure/s: ORIF Left Ankle Consent for Planned Operative Procedure(s) Verified: Yes Verified Documents: Surgical Consent and History and Physical NPO Status Verified Time NPO: 00:00 Additional verifications Anesthesia Reactions: No Hx Blood Transfusions: No Blood Transfusion Reaction: No Airway Assessment Mallampati Score:: Class II C-Spine Mobility Assessed: Yes TMJ Mobility Assessed: Yes Dentition: Good Dentition (Pt states that she has permanent retainers. Risks of dental damage and plan of care with LMA explained. Pt verbalized understanding) Neurological Assessment Level of Consciousness: Awake and Alert Anesthesia Plan Anesthesia Risk discussed: Yes Anesthesia Plan: Verified ASA Class: II Anesthesia Type: General w/block (Left Popliteal/Adductor Canal Nerve Blocks. Risks/benefits explained. Pt verbalized understanding)
--- NOTE | 2023-04-18 15:21 | SUR.OPER ---
1520- family updated of pt current status via jessie cintron.
--- NOTE | 2023-04-18 15:42 | XR_ITS ---
FINAL REPORT CLINICAL HISTORY: ORIF 6.17 mgy, fluoro time 1:41 FINDINGS: Fluoroscopic guidance was provided for the operating services. 4 spot films were provided. 1 minute 41 seconds of fluoroscopy time was utilized. IMPRESSION: 6.17 mGy air kerma. Reviewed, Interpreted and Dictated by Tonio Mittal III, MD Transcribed by Jae Oliveros Authenticated and [facility][1]
--- NOTE | 2023-04-18 16:23 | P.PNANES_ITS ---
[facility] Anesthesia Record Part I Anesthesia Record I Intake, IV Amount: 1,300 Hydration: Adequate Estimated blood loss (mL): 10 Urine output (mL): 0 Blood Products used (#): none Blood Pressure: 132/81 SaO2: 92 Pulse Rate: 104 Airway Patency: Patent Respiratory Rate: 16 Temperature: 97 F Patient is:: Drowsy and Stable Stable to PACU at:: 16:15
--- NOTE | 2023-04-18 16:30 | EXP.OP.NOTE ---
Date of procedure: 04/18/23 Pre-op Diagnosis:: Left trimalleolar ankle fracture Post-op Diagnosis:: Same Procedure performed:: Open reduction internal fixation left trimalleolar ankle fracture without fixation of posterior malleolus Surgeon:: Gaeb Gastelum DO ASSISTANT GROCERY STORE MANAGER:: Armando Flores Anesthesia: GETA and regional Estimated blood loss (mL): 10 Operative findings:: See dictation Operative note:: Patient is identified preoperatively. Left ankle marked with yes my initials. Transported operative suite after undergoing a regional anesthetic block with anesthesia. Taken the operating room placed upon the operating bed. Left lower extremity prepped and draped normal sterile fashion. Once prepped and draped final operative timeout performed to identify proper patient procedure and extremity. Everyone involved the case agreed. There is no counter indications to beginning. Did receive preoperative antibiotics. Marking pen was used to aminta plan incision over the fibula C arm was brought into identify the fracture site. Esmarch was used to exsanguinate the extremity pneumatic tourniquet inflated to 300 mmHg. Skin knife was used to incise through skin. Careful dissection was taken down to identify the fracture site and the fibula this was a high fibular fracture. There was a butterfly fragment with very severe comminution at the fracture site. Several small pieces of bone present. Reduction maneuver of the fracture was performed with lobster-claw clamps. The comminution at the fracture site did not allow for lag screw placement. Appropriate size plate was selected placed on the fibula proximally with cortical screws. Ankle x-rays and x-rays of the fracture site confirm proper length of the fibula which was held with a lobster claw. Distal locking screws and cortical screws were placed. X-rays of the ankle were performed to evaluate syndesmosis which was ruptured. The guidewire for the tight rope syndesmotic repair was utilized to place in a bicortical fashion through the fibula and the tibia the passing mechanism for the tight rope was utilized and the button was flipped on the medial cortex of the tibia and then sequential pulling of each individual limb gave good fixation of the tight rope for repair of the syndesmosis. Copious irrigation of wound performed deep layers closed with 0 Vicryl subcutaneous with 2-0 Vicryl and 3-0 nylon the skin. Attention then brought to the medial joint line x-rays were brought in and there was a large fragment medial malleolus fragment which was largely anteriorly in nature. Using AP and lateral x-rays guidewire was placed anterior to the apex of the fracture additional guidewire was placed posterior to this viewed on the AP and lateral views to find to be in proper position and overdrilled for the 4 oh cannulated screws into size 38 mm in length 4 cannulated screws were placed without difficulty. Irrigation wound performed skin closed with nylon stitch medially sterile dressing placed with Adaptic 4 x 4 soft roll and a well-padded posterior splint and sugar-tong splint placed wrap with an Hunter bandage patient waken anesthesia taken recovery stable condition. Condition: stable Disposition: PACU Complications:: None apparent
--- NOTE | 2023-04-19 12:58 | EXP.ANES.II ---
[facility] Anesthesia Record Part II Anesthesia Record Part II Discharge Time: 16:55 Destination: Surgical Day Care (OP Surgery) PACU nurse assessment reviewed?: Yes Patient Condition:: Good Anesthesia Complications:: None Swallowing reflex intact?: Yes Airway Patency: Patent Cyanosis?: No Blood Pressure: 123/75 SaO2: 96 Respiratory Rate: 18 Pulse Rate: 100 Temperature: 98.2 F Mental Status: Alert & Oriented Pain level:: 0 Nausea and/or vomitting:: Nauseated Intake, IV Amount: 0 Hydration: Adequate
[2023-04-19 12:59] VITALS: BP 123/75; PULSE 100; RESP 18; TEMP 36.8; O2SAT 96
== END 2023-04-18 17:35 | disposition home or self-care (01) ==
PROVIDERS: Visit Provider Orthopaedic Surgery
PROC: (CPT 27814; principal; 2023-04-18 12:30)
DX: S82.852A Displaced trimalleolar fracture of left lower leg, initial encounter for closed fracture (principal); W01.0XXA Fall on same level from slipping, tripping and stumbling without subsequent striking against object, initial encounter; Y92.238 Other place in hospital as the place of occurrence of the external cause; Y99.0 Civilian activity done for income or pay
CPT/HCPCS: 27814; 73600; 76000; 96374; C1713; C1776; J2405

== ENCOUNTER → 2023-04-28 11:42 | Outpatient (CLI) | payer OTHER, SELFPAY ==
--- NOTE | 2023-04-28 11:47 | XR_ITS ---
FINAL REPORT CLINICAL HISTORY: Lt Ankle Fx COMPARISON: 04/11/2023 FINDINGS: LEFT ANKLE Three views demonstrate sideplate and screws securing a healing fracture of the distal fibula. Orthopedic screw in the medial malleolus. Orthopedic hardware is new from the prior. Overlying cast material is noted. There is an ununited comminuted fragment associated with the distal fibular fragment. The visualized joint spaces are normally aligned. The soft tissues are unremarkable. IMPRESSION: Postsurgical changes as above with healing distal fibular fracture. Reviewed, Interpreted and Dictated by Nahun Nina MD Transcribed by Malinda Strauss Authenticated and [facility]
== END ==
PROVIDERS: PCP Internal Medicine Adolescent Medicine; Visit Provider Orthopaedic Surgery
DX: S82.852A Displaced trimalleolar fracture of left lower leg, initial encounter for closed fracture (principal)
CPT/HCPCS: 73610

== ENCOUNTER 2023-04-28 12:37 | Outpatient (RCR) | payer OTHER, SELFPAY | END 2023-04-28 13:30 | disposition home or self-care (01) | LOC: PT 12:37 | PROVIDERS: Visit Provider Orthopaedic Surgery | DX: S82.852A Displaced trimalleolar fracture of left lower leg, initial encounter for closed fracture (principal) | CPT/HCPCS: 97760 ==

== ENCOUNTER 2023-05-31 10:34 | Outpatient (CLI) | payer OTHER, SELFPAY ==
--- NOTE | 2023-05-31 10:38 | XR_ITS ---
FINAL REPORT CLINICAL HISTORY: Left ankle fx COMPARISON: There April 2023 FINDINGS: LEFT ANKLE: Three views of the left ankle were obtained. Again seen are postoperative changes of the distal fibula and medial malleolus with a sideplate and multiple screws. There are stable fractures of the distal fibula and medial malleolus. IMPRESSION: Stable postoperative changes. Reviewed, Interpreted and Dictated by Tonio Mittal III, MD Transcribed by Jae Oliveros Authenticated and [facility]
== END 2023-05-31 23:59 ==
LOC: RAD 10:35
PROVIDERS: PCP Internal Medicine Adolescent Medicine; Visit Provider Orthopaedic Surgery
DX: M25.572 Pain in left ankle and joints of left foot (principal); S82.842D Displaced bimalleolar fracture of left lower leg, subsequent encounter for closed fracture with routine healing; Y99.0 Civilian activity done for income or pay
CPT/HCPCS: 73610

== ENCOUNTER 2023-07-05 09:32 | Outpatient (CLI) | payer OTHER, SELFPAY ==
--- NOTE | 2023-07-05 09:39 | XR_ITS ---
FINAL REPORT CLINICAL HISTORY: s/p ankle fracture COMPARISON: 05/31/2023 FINDINGS: AP, oblique, and lateral views of the left ankle were obtained. A side plate and screws bridge a fracture of the distal fibula, and 2 screws are present in the lateral malleolus. The ankle mortise is intact. No significant changes noted since the prior films of May 31. Soft tissues are normal. IMPRESSION: Status post ORIF of fractures of the distal fibula and medial malleolus as described. No significant change identified since the prior films of May 31. Reviewed, Interpreted and Dictated by Nahun Nina MD Transcribed by Chrissy Page Authenticated and [facility]
== END 2023-07-05 23:59 ==
LOC: RAD 09:33
PROVIDERS: PCP Internal Medicine Adolescent Medicine; Visit Provider Orthopaedic Surgery
DX: M25.572 Pain in left ankle and joints of left foot (principal); S82.402A Unspecified fracture of shaft of left fibula, initial encounter for closed fracture; S82.852A Displaced trimalleolar fracture of left lower leg, initial encounter for closed fracture
CPT/HCPCS: 73610

== ENCOUNTER 2023-07-26 09:46 | Outpatient (CLI) | payer OTHER, SELFPAY ==
--- NOTE | 2023-07-26 09:54 | XR_ITS ---
FINAL REPORT CLINICAL HISTORY: lt ankle pain COMPARISON: 07/05/2023 FINDINGS: Left ankle Three views were obtained. There are postoperative changes in the distal tibia/fibula. Screw plate and multiple screws are present. There is a chronic distal fibular fracture. Mild degenerative changes are present. There is chronic calcification inferior to the medial malleolus. Findings are stable since prior. IMPRESSION: Stable postsurgical changes. Reviewed, Interpreted and Dictated by Tonio Mittal III, MD Transcribed by Mary Riley Authenticated and [facility]
== END 2023-07-26 23:59 ==
LOC: RAD 09:46
PROVIDERS: PCP Internal Medicine Adolescent Medicine; Visit Provider Orthopaedic Surgery
DX: S82.842D Displaced bimalleolar fracture of left lower leg, subsequent encounter for closed fracture with routine healing (principal); Y99.0 Civilian activity done for income or pay
CPT/HCPCS: 73610

== ENCOUNTER 2023-08-25 10:22 | Outpatient (CLI) | payer OTHER, SELFPAY ==
--- NOTE | 2023-08-25 10:25 | XR_ITS ---
FINAL REPORT CLINICAL HISTORY: left ankle orif denies any pain COMPARISON: 07/26/2023 FINDINGS: LEFT ANKLE: Three views of the left ankle were obtained. Postoperative changes are stable since the prior radiographs of July 25. There is no acute fracture or dislocation. The joint spaces and mortise are intact. A chronic calcification is once again noted inferior to the medial malleolus. The hardware is stable. IMPRESSION: Postoperative changes of ORIF of the left ankle are stable. Chronic calcification adjacent to the medial malleolus. Reviewed, Interpreted and Dictated by Tonio Mittal III, MD Transcribed by Chrissy Page Authenticated and [facility]
== END 2023-08-25 23:59 ==
LOC: RAD 10:23
PROVIDERS: PCP Internal Medicine Adolescent Medicine; Visit Provider Orthopaedic Surgery
DX: M25.572 Pain in left ankle and joints of left foot (principal); S82.852A Displaced trimalleolar fracture of left lower leg, initial encounter for closed fracture
CPT/HCPCS: 73610

== ENCOUNTER 2023-09-23 11:00 | Outpatient (RCR) | payer OTHER, SELFPAY ==
--- NOTE | 2023-07-28 15:24 | HMH.PTOPEV ---
PT Outpatient Evaluation Rehab PT Outpatient Evaluation Start: 07/28/23 13:49 Freq: Status: Active Protocol: Document 07/28/23 14:48 JULIANNE (Rec: 07/28/23 15:23 JULIANNE [id number]) E-signed By Emil Noel, PT Outpatient Therapy Subjective History Subjective History The patient is a 33 year old female that presents s/p ORIF of her L ankle performed on , following a traumatic fall resulting in a fracture of her L ankle. The patient reports that she saw the dr on 07/25 and reported that she was healing fine. She reports that she has stopped using her crutches and that she has been given the okay to stop wearing her boot, but she has not stopped wearing it yet. The patient reports that she has a lot of trouble standing for long periods: about 15 minutes is all is able to handle. She reports walking has also been difficult. 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 New diagnosis of cancer in past 12 No months? Chief Complaint Pain,Stiff,Weakness Symptom Type Ache,Dull Symptoms Relieved By Rest/Positioning,Ice Symptoms Aggravated By Standing,Physical Activity, Walking Prior Functional Limitations None Current Functional Limitations Lifting,Housework,Standing, Recreation Activity,Walking, Stairs Symptom Description Constant but Variable Level of pain today (0-10) 2 Pain scale - at its best (0-10) 2 Pain scale - at its worst (0-10) 4 Ankle/Foot Eval Gait Observation General Gait Pattern Observation Antalgic Gait,Shuffling Step, Decrease Weight Bear (L) Palpation Tenderness left Ankle/Foot Palpation Findings Tenderness Ankle/Foot Palpation Overall Comment TTP 2/4 in rosio-surgical area. ATF TTP negative PTF TTP negative CF TTP negative Deltoid ligament TTP negative ROM bilateral Ankle/Foot Dorsiflexion w/Knee Extended Left: 8 Right: 16 Active Range Motion (degrees) Ankle/Foot Dorsiflexion w/Knee Extended Left: 10 Passive Range (degrees) Ankle/Foot Plantar Flexion Active Range Left: 32 Right: 46 of Motion (degrees) Ankle/Foot Plantar Flexion Passive Range Left: 35 of Motion (degrees) Ankle/Foot Eversion Active Range of Left: 12 Right: 18 Motion (degrees) Ankle/Foot Eversion Passive Range of Left:12 Motion (degrees) Ankle/Foot Inversion Active Range of Left: 18 Right: 26 Motion (degrees) Ankle/Foot Inversion Passive Range of Left: 18 Motion (degrees) Ankle/Foot ROM Limitations Soft Tissue Tightness MMT right Ankle Dorsiflexion Strength Grade 5 Normal Ankle Plantarflexion Strength Grade 5 Normal Foot Eversion Strength Grade 5 Normal Foot Inversion Strength Grade 5 Normal left Ankle Dorsiflexion Strength Grade 3+ Fair+ Ankle Plantarflexion Strength Grade 4 Good Foot Eversion Strength Grade 3+ Fair+ Foot Inversion Strength Grade 3- Fair- Lower Extremity Functional Index Activities Today, do you or would you have any difficulty at all with: a.Any of your usual work, housework or Extreme difficulty or unable school activities to perform activity b. Your usual hobbies, recreational or Moderate difficulty sporting activities c. Getting into or out of the bath A little bit of difficulty d. Walking between rooms No difficulty e. Putting on your shoes or socks No difficulty f. Squatting A little bit of difficulty g. Lifting an object, like a bag of No difficulty groceries from the floor h. Performing light activities around No difficulty your home i. Performing heavy activities around Moderate difficulty your home j. Getting into or out of a car No difficulty k. Walking 2 blocks Quite a bit of difficulty l. Walking a mile Extreme difficulty or unable to perform activity m. Going up or down 10 stairs (about 1 Quite a bit of difficulty flight of stairs) n. Standing for 1 hour Extreme difficulty or unable to perform activity o. Sitting for 1 hour No difficulty p. Running on even ground Extreme difficulty or unable to perform activity q. Running on uneven ground Extreme difficulty or unable to perform activity r. Making sharp turns while running fast Extreme difficulty or unable to perform activity s. Hopping Extreme difficulty or unable to perform activity t. Rolling over in bed No difficulty LEFI Score Lower Extremity Functional Index Score 40 Outpatient Therapy Assessment Impairments Problems/Impairmments Palpation Tenderness,Impaired Range of Motion,Impaired Strength,Impaired Endurance, Impaired Gait Pattern,Impaired Walking,Impaired Balance, Subjective C/O Pain Prognosis Rehab Potential Good Comment Patient presents for initial evaluation today following ORIF of L ankle on 07/28/2023. Patient presents below baseline in ROM of her L ankle , strength of her L ankle and her present mobility. The patient demonstrates difficulty standing without her boot and requires handheld assistance when walking without her boot. Skilled PT is indicated for this patient to promote a return to her prior level of function and to promote a safe return to work . Clinical Impression Consistent with Diagnosis Yes Consistent with s/p ORIF of L ankle Short Term Goals Number of Weeks 2 Decreased Palpation Tenderness Yes: to 1/4 Increase Range of Motion Yes: Symmetrical with R LE Increase Strength Yes: 4/5 Grossly Improve Gait Pattern with Assistive Yes: Improved weight bearing Device on LLE Increase Ability to Stand Yes: 15 minutes with 2/10 pain Improve Ability to Climb Stairs Yes: Flight of stairs with 3/ 10 pain Improve LEFI Score Yes: >50 Decrease Subjective C/O Pain Yes: 3/10 at worst Patient to be Ind w/ HEP Yes [facility] Goals Number of Weeks 4 Decreased Palpation Tenderness Yes: 0/4 Increase Strength Yes: 5/5 Improve Gait Pattern with Assistive No Device Improve Gait Pattern without Assistive Yes: No deviations Device Increase Ability to Walk Yes: 500 feet with no pain Increase Ability to Stand Yes: 30 minutes 1/10 pain Improve Ability to Climb Stairs Yes: flight of stairs with 1/ 10 pain Improve LEFI Score Yes: 60 Patient to be Ind w/ Advanced HEP Yes Outpatient Therapy Plan of Care Treatment Plan May Include Therapeutic Exercise Including Home Yes Exercise Program Manual Therapy Techniques Yes Neuromuscular Re-education Yes Therapeutic Activities to Return to Yes Previous Functional/Work Level Gait Training Yes ADL/Self Care Education Yes Mechanical Traction Yes Dry Needling Yes Thermal Modalities Yes Electrical Stimulation Yes Ultrasound/Phonophoresis Yes Orthotics/Bracing/Splinting Yes Massage Yes Manual Lymphatic Drainage Yes Eval/Re-Eval Yes Aquatic Therapy Yes Frequency Times per week 2-3x/week Duration Number of Weeks 6 Addendums This patient is a candidate for social No or vocational rehab? Patient/Guardian verbally acknowledges Yes understanding of treatment program and consents to further treatment? Patient/Guardian verbally acknowledges Yes understanding of diagnosis, prognosis and goals for treatment? Eval Complexity PT Charges 42821 - Moderate Complexity Shoulder/Elbow Eval Shoulder Objective Measurements Elbow Objective Measurements PHYSICIAN CERTIFICATION: I certify the specified therapy services for Kell Dempseys are required, authorized, and reviewed every 30 days.
--- NOTE | 2023-08-24 12:53 | HMH.RHREAS ---
Rehab Reassessment Rehab OP Re-assessment Start: 07/28/23 13:49 Freq: Status: Active Protocol: Document 08/24/23 11:51 PHORNE (Rec: 08/24/23 12:53 PHORNE [id number]) E-signed By Emil Noel, PT Lower Extremity Functional Index Activities Today, do you or would you have any difficulty at all with: a.Any of your usual work, housework or No difficulty school activities b. Your usual hobbies, recreational or Moderate difficulty sporting activities c. Getting into or out of the bath No difficulty d. Walking between rooms No difficulty e. Putting on your shoes or socks No difficulty f. Squatting A little bit of difficulty g. Lifting an object, like a bag of No difficulty groceries from the floor h. Performing light activities around No difficulty your home i. Performing heavy activities around A little bit of difficulty your home j. Getting into or out of a car No difficulty k. Walking 2 blocks No difficulty l. Walking a mile A little bit of difficulty m. Going up or down 10 stairs (about 1 No difficulty flight of stairs) n. Standing for 1 hour A little bit of difficulty o. Sitting for 1 hour No difficulty p. Running on even ground Quite a bit of difficulty q. Running on uneven ground Quite a bit of difficulty r. Making sharp turns while running fast Quite a bit of difficulty s. Hopping Quite a bit of difficulty t. Rolling over in bed No difficulty LEFI Score Lower Extremity Functional Index Score 62 Rehab Re-assessment Subjective Subjective Patient reports that she feels that she has improved quite a bit since beginning PT. She reports that her current pain is a 1/10 and at worst it reaches a 3/10. She reports that she continues to wear her boot some when she is out in public, but she does not wear it at home. She reports that she is going to see the doctor in the next few days and reports that she is hoping to be cleared to return to work. Objective Objective Notes MMT: L Ankle: PF: 4+/5 DF 4+/5 Inv: 4/5 Ever: 4+/5 ROM: PF 52 DF 22 Gait: Antalgic with Decreased WB on RLE, decreased toe off of RLE Assessment Progress Assessment Progressing as Expected Assessment Notes Patient has demonstrated signficant improvements since her inital evaluation. She has demonstrated signficant improvements in ROM, Strength, and functional capabilities. Skilled PT remains indicated for this patient to continue to return to her prior level of function. Patient goals met ST-8 LT Goals Not Met LT,2,3,4,5,6,8 Plan Plan Continue as per protocol. Increased emphasis on WB activities with a return to work focus. Frequency of Therapy 2-3/week Duration of therapy 4 wks Time and Billing Re-Eval Time 11 Re-Eval Billing Units 1 PHYSICIAN CERTIFICATION: I certify the specified therapy services for Kell Wolf are required, authorized, and reviewed every 30 days.
== END 2023-09-23 12:00 | disposition home or self-care (01) ==
LOC: PT 11:00
PROVIDERS: Visit Provider Orthopaedic Surgery
DX: M25.572 Pain in left ankle and joints of left foot (principal); S82.842A Displaced bimalleolar fracture of left lower leg, initial encounter for closed fracture
CPT/HCPCS: 97010; 97014; 97016; 97110; 97112; 97140; 97163; 97164; 97530; G0283

== ENCOUNTER 2024-04-06 07:56 | Outpatient (CLI) | payer OTHER, SELFPAY ==
[2024-04-06 08:22] LABS: Basophils # 0.1 K/mm3 (0-0.2); Basophils % 1.2 % (0.1-2.0); Eosinophils # 0.1 K/mm3 (0.0-0.4); Eosinophils % 0.9 % (0.1-12.0); Hematocrit 39.9 % (37.0-47.0); Hemoglobin 13.4 g/dL (12.2-16.2); Lymphocytes # 1.7 K/mm3 (0.7-4.5); Mean Corpuscular HGB Conc 33.7 g/dL (31.8-35.4); Mean Corpuscular Hemoglobin 30.7 pg (27.0-31.2); Mean Corpuscular Volume 91.2 fl (81-99); Mean Platelet Volume 7.3 fl (7.4-10.4); Monocytes # 0.3 K/mm3 (0.1-1.0); Monocytes % 4.1 % (1.7-9.3); Neutrophils # 4.3 K/mm3 (1.8-7.8); Neutrophils % 67.7 % (37.0-80.0); Platelet Count 254 K/mm3 (142-424); Red Blood Count 4.38 M/mm3 (4.20-5.40); Red Cell Distribution Width 13.9 % (11.5-17.5); White Blood Count 6.4 K/mm3 (4.8-10.8)
[2024-04-06 09:24] LABS: Hemoglobin A1C 5.5 % (4.0-6.0)
[2024-04-06 09:38] LABS: Alanine Aminotransferase 22 U/L (12-78); Albumin Level 4.1 g/dl (3.5-5.0); Albumin/Globulin Ratio 1.6 (1.1-1.8); Alkaline Phosphatase 86 U/L (38-126); Anion Gap 12.1 mEq/L (5-15); Aspartate Amino Transferase 21 U/L (14-36); Bilirubin,Total 0.9 mg/dl (0.2-1.3); Blood Urea Nitrogen 15 mg/dl (7-17); Calcium 9.1 mg/dl (8.4-10.2); Carbon Dioxide 25 mmol/L (22.0-30.0); Chloride 104 mmol/L (98-107); Chol/HDL Ratio 3.7 (1-3.5); Cholesterol 154 mg/dl (140-200); Estimated Glomerular Filt Rate 71 ml/min (>60); GFR (African American) 86 ML/MIN (>60); Globulin 2.6 g/dL (1.3-3.2); Glucose 99 mg/dl (74-100); HDL Cholesterol 42 mg/dl (40-60); Potassium 4.1 mmoL/L (3.5-5.1); Sodium 137 mmol/L (136-145); Total Protein,Serum 6.7 g/dl (6.3-8.2); Triglycerides 114 mg/dl (30-150); VLDL Cholesterol 23 mg/dL (0-40)
[2024-04-06 09:50] LABS: 25-OH Vitamin D, Total 39.4 ng/mL (30-100); Triiodothryronine (T3) Uptake 35 % (23.5-40.5)
[2024-04-06 09:51] LABS: Free Thyroxine Index 2.8 ug/dL (5.93-13.13); T4 (Thyroxine) 8.1 ug/dl (5.53-11.0)
[2024-04-06 09:57] LABS: Direct LDL Cholesterol 98.76 mg/dL (100-129)
[2024-04-06 10:05] LABS: Thyroid Stimulating Hormone 1.37 uIU/mL (0.465-4.68)
[2024-04-06 10:27] LABS: Vitamin B12 616 pg/mL (239-931)
== END 2024-04-06 23:59 | disposition home or self-care (01) ==
LOC: LAB 07:59
PROVIDERS: PCP Internal Medicine Adolescent Medicine; Visit Provider Internal Medicine Adolescent Medicine
DX: R53.81 Other malaise (principal); R53.83 Other fatigue; Z83.3 Family history of diabetes mellitus; Z82.49 Family history of ischemic heart disease and other diseases of the circulatory system
CPT/HCPCS: 36415; 80050; 80053; 80061; 82306; 82607; 83036; 84436; 84443; 84479; 85025

== ENCOUNTER 2025-03-07 08:32 | Outpatient (CLI) | payer OTHER, SELFPAY ==
--- OUTSIDE RECORDS SUMMARY | 2025-03-07 08:43 | XMS_ITS | Clinical Summary ---
Author Organization Healthcare Address [address] [place] [address] Care Team Providers Care Batch Dumper Name Role Phone Addison Garcia MD Primary Care Provider [phone] Family History Medical History Relation Name Comments Hyperlipidemia Father Thyroid disease Mother Relation Name Status Comments Father Mother Social History Tobacco Use Types Packs/Day Years Used Date Smoking Tobacco: Never Alcohol Use Standard Drinks/Week Comments No 0 (1 standard drink = 0.6 oz pur e alcohol) Comments Unknown Sex and Gender Information Value Date Recorded Sex Assigned at Not on file Legal Sex Female 7:31 PM EDT Gender Identity Not on file Sexual Orientation Not on file Last Filed Vital Signs Vital Sign Reading Time Taken Comments Blood Pressure 106/71 02/16/2019 8:50 AM EDT Pulse - - Temperature - - Respiratory Rate - - Oxygen Saturation - - Inhaled Oxygen Concentration - - Weight 81.6 kg (179 lb 14.3 oz) 02/16/2019 8:50 AM EDT Height 160 cm (5' 3 ) 02/16/2019 8:50 AM EDT Body Mass Index 31.87 02/16/2019 8:50 AM EDT Plan of Treatment Not on file Care Teams Batch Dumper Relationship Specialty Start Date End Date Addison Garcia MD [address] [place] [id number] PCP - General 09/26/20
[2025-03-07 08:48] LABS: Hematocrit 39.0 % (37.0-47.0); Hemoglobin 13.0 g/dL (12.2-16.2); Immature Granulocytes % 0.3 %; Mean Corpuscular HGB Conc 33.3 g/dL (31.8-35.4); Mean Corpuscular Hemoglobin 30.9 pg (27.0-31.2); Mean Corpuscular Volume 92.6 fl (81-99); Nucleated Red Blood Cells % 0 %; Platelet Count 246 K/mm3 (142-424); Red Blood Count 4.21 M/mm3 (4.20-5.40); Red Cell Distribution Width-SD 43.8 fL; White Blood Count 6.0 K/mm3 (4.8-10.8)
[2025-03-07 09:17] LABS: Hemoglobin A1C 5.6 % (4.0-6.0)
[2025-03-07 09:26] LABS: Albumin Level 3.9 g/dl (3.5-5.0); Chloride 101 mmol/L (98-107)
[2025-03-07 09:27] LABS: Potassium 4.2 mmoL/L (3.5-5.1); Sodium 135 mmol/L (136-145)
[2025-03-07 09:29] LABS: Alanine Aminotransferase 26 U/L (12-78); Albumin/Globulin Ratio 1.3 (1.1-1.8); Alkaline Phosphatase 79 U/L (38-126); Anion Gap 11.2 mEq/L (5-15); Aspartate Amino Transferase 24 U/L (14-36); Bilirubin,Total 1.0 mg/dl (0.2-1.3); Blood Urea Nitrogen 10 mg/dl (7-17); Carbon Dioxide 27 mmol/L (22.0-30.0); Creatinine,Serum 0.80 mg/dl (0.52-1.04); Estimated Glomerular Filt Rate 82 ml/min (>60); GFR (African American) 99 ML/MIN (>60); Globulin 3.0 g/dL (1.3-3.2); Total Protein,Serum 6.9 g/dl (6.3-8.2); Triglycerides 89 mg/dl (30-150)
[2025-03-07 09:30] LABS: Calcium 8.9 mg/dl (8.4-10.2); Cholesterol 160 mg/dl (140-200); Glucose 103 mg/dl (74-100); HDL Cholesterol 44 mg/dl (40-60)
[2025-03-07 09:47] LABS: Triiodothryronine (T3) Uptake 36 % (23.5-40.5)
[2025-03-07 09:48] LABS: Free Thyroxine Index 3.2 ug/dL (5.93-13.13); T4 (Thyroxine) 8.8 ug/dl (5.53-11.0)
[2025-03-07 10:01] LABS: Thyroid Stimulating Hormone 1.42 uIU/mL (0.465-4.68)
[2025-03-07 10:19] LABS: Vitamin B12 377 pg/mL (239-931)
[2025-03-07 10:49] LABS: 25-OH Vitamin D, Total 45.7 ng/mL (30-100)
[2025-03-07 11:55] LABS: Folate 12.80 ng/mL
== END 2025-03-07 23:59 | disposition home or self-care (01) ==
LOC: LAB 08:33
PROVIDERS: PCP Internal Medicine Adolescent Medicine; Visit Provider Internal Medicine Adolescent Medicine
DX: R53.81 Other malaise (principal); R53.83 Other fatigue; Z83.3 Family history of diabetes mellitus; Z82.49 Family history of ischemic heart disease and other diseases of the circulatory system
CPT/HCPCS: 36415; 80053; 80061; 82306; 82607; 82746; 83036; 84436; 84443; 84479; 85025